=== PATIENT | male | born 1980 | race Caucasian/White ===

== ENCOUNTER 2016-12-04 04:19 | Emergency (ER) | payer OTHER ==
[2016-12-04] MEDS ORDERED: NO HOME MEDICATION XX (04:29)
[2016-12-04] MEDS ORDERED: BACTRIM DS TAB1 EAC2 PO (06:08)
== END 2016-12-04 06:15 ==
LOC: EDMED 04:19
DX: S22.31XA Fracture of one rib, right side, initial encounter for closed fracture (principal); S20.211A Contusion of right front wall of thorax, initial encounter; S60.221A Contusion of right hand, initial encounter; L03.114 Cellulitis of left upper limb; V86.69XA Passenger of other special all-terrain or other off-road motor vehicle injured in nontraffic accident, initial encounter